=== PATIENT | female | born 1995 | race Two or more races ===

== ENCOUNTER 2022-05-09 23:37 | Emergency (ER) | payer OTHER ==
[~2022-05-09] VITALS: Ht 152.4 cm; Wt 81.6 kg
[2022-05-09] MEDS ORDERED: LAMICTAL XR100 MG PO (23:48)
== END 2022-05-10 10:21 | disposition home or self-care (01) ==
LOC: ER 23:37
DX: O02.1 Missed abortion (principal); Z20.822 Contact with and (suspected) exposure to COVID-19; Z3A.10 10 weeks gestation of pregnancy